=== PATIENT | male | born 1990 | race African-American/Black ===

== ENCOUNTER 2019-02-21 16:22 | Emergency (ER) | payer OTHER ==
[~2019-02-21] VITALS: Ht 180.3 cm; Wt 78.6 kg
[2019-02-21 17:09] LABS: BASO # 0.1 10^3/uL (0.0-0.2); BASO % 1.1 % (0.0-1.0); EOS # 0.3 10^3/uL (0.0-0.50); EOS % 5.5 % (0.0-3.0); HEMATOCRIT 43.5 % (42.0-52.0); HEMOGLOBIN 15.5 g/dl (13.5-17.5); LYMPH # 2.4 10^3/uL (1.5-6.5); LYMPH % 42.7 % (24.0-44.0); MEAN CORPUSCULAR HEMOGLOBIN 27.8 pg (27.0-33.0); MEAN CORPUSCULAR HGB CONC 35.6 g/dl (32.0-36.5); MEAN CORPUSCULAR VOLUME 78.1 fl (80.0-96.0); MONO # 0.4 10^3/uL (0.0-0.8); MONO % 7.3 % (0.0-5.0); NEUTROPHILS # 2.4 10^3/uL (1.8-7.7); PLATELET COUNT, AUTOMATED 150 10^3/uL (150-450); RED BLOOD COUNT 5.57 10^6/uL (4.30-6.10); WHITE BLOOD COUNT 5.6 10^3/uL (4.0-10.0)
[2019-02-21 17:42] LABS: BLOOD UREA NITROGEN 14 MG/DL (7-18); C REACTIVE PROTEIN QUANTITATIV < 0.30 MG/DL (0.00-0.30); CALCIUM LEVEL 8.3 MG/DL (8.5-10.1); CARBON DIOXIDE LEVEL 26 MEQ/L (21-32); CHLORIDE LEVEL 109 MEQ/L (98-107); CK-MB VALUE MASS < 1.0 NG/ML (<3.6); CPK CREATINE PHOSPHOKINASE 131 U/L (39-308); CREATININE FOR GFR 1.22 MG/DL (0.70-1.30); GLOMERULAR FILTRATION RATE > 60.0 (>60); GLUCOSE, FASTING 95 MG/DL (70-100); MB/CK RELATIVE INDEX 0.76 (< OR =4); POTASSIUM SERUM 4.1 MEQ/L (3.5-5.1); SODIUM LEVEL 141 MEQ/L (136-145); TROPONIN I < 0.02 NG/ML (< 0.10)
[2019-02-21 17:51] LABS: ERYTHROCYTE SEDIMENTATION RATE 2 mm/hr (0-15)
[2019-02-21 18:43] VITALS: BP 118/66
--- NOTE | 2019-02-21 19:29 | ECGEPIP ---
Stationary ECG Study [facility] - ED Test Date: 2019-02-21 Pat Name: EVA RING Department: Room: - Gender: M [employer] Consultant: : [id number] Requested By: ALEKSANDER Jaramillo PA-C Order Number: [id number] Reading MD: Yobany Collins Measurements Intervals [place] Rate: 66 P: 58 ND: 163 QRS: 65 QRSD: 88 T: 33 QT: 341 QTc: 358 Interpretive Statements SINUS RHYTHM INCOMPLETE RIGHT BUNDLE BRANCH BLOCK NO PRIORS FOR COMPARISON Electronically Signed On 02-21-2019 19:29:16 EDT by Yobany Collins
--- NOTE | 2019-02-22 09:35 | REP ---
Chest x-ray: Two views. History: Chest pain . Comparison study: No comparison study . Findings: The lungs are well inflated and free of infiltrate. The pleural angles are sharp. The heart size is normal. Pulmonary vasculature is not increased. No significant bony abnormality is seen. Impression: Negative chest x-ray. Electronically Signed by Daniel Strong MD 02/21/2019 05:09 P
== END 2019-02-21 19:08 | disposition home or self-care (01) ==
LOC: M ED 16:22
DX: R07.89 Other chest pain (principal); F43.0 Acute stress reaction